=== PATIENT | male | born 1950 | race Caucasian/White ===

== ENCOUNTER → 2020-08-12 | Outpatient (CLI) | payer MEDICARE, OTHER ==
[~2020-08-12] MED LIST: ALLOPURINOL300 MG PO; ASPIRIN81 MG PO; ATENOLOL50 MG PO; AUGMENTIN 875-1 EACH PO; DILTIAZEM 24HR240 M1 PO; ESSENTIAL DAIL1 EACH PO; FISH OIL + D31 EACH PO; FLAGYL500 MG PO; FOLIC ACID 1 MG1 MG PO; HYDROCHLOROTHIA25 MG PO; NORCO 5-325 TA1 EACH PO; SOTALOL80 MG PO; XARELTO20 MG PO; ZOCOR10 MG PO
== END ==
LOC: HEART 5 09:11
DX: I48.91 Unspecified atrial fibrillation (principal); R06.02 Shortness of breath; Z79.899 Other long term (current) drug therapy
CPT/HCPCS: 94010; 94729

== ENCOUNTER → 2020-12-03 | Outpatient (CLI) | payer MEDICARE | LOC: KOH-I 13:10 | DX: M25.511 Pain in right shoulder (principal); S43.101A Unspecified dislocation of right acromioclavicular joint, initial encounter | CPT/HCPCS: 73030 ==

== ENCOUNTER → 2021-01-14 | Outpatient (CLI) | payer MEDICARE | LOC: KOH-I 15:15 | DX: M75.121 Complete rotator cuff tear or rupture of right shoulder, not specified as traumatic (principal); S43.011A Anterior subluxation of right humerus, initial encounter | CPT/HCPCS: 73221 ==

== ENCOUNTER → 2021-03-26 | Outpatient (CLI) | payer MEDICARE ==
[~2021-03-26] MED LIST changes: +AMIODARONE HCL200 MG PO; +HYDROCHLOROTH12.5 MG PO; -HYDROCHLOROTHIA25 MG PO; +LISINOPRIL5 MG PO
[2021-03-26 08:39] LABS: HEMOGLOBIN 12.6 gm/dl (14.0-17.5); RED BLOOD COUNT 4.34 M/UL (4.20-5.50); WHITE BLOOD COUNT 5.3 K/UL (4.5-11.0)
[2021-03-26 08:56] LABS: BUN/CREATININE RATIO 11 (0-10)
== END ==
LOC: OPSV2 07:58 → EDSTATUS 08:00 → OPSV2 08:00
PROVIDERS: Orthopaedic Surgery
DX: Z01.818 Encounter for other preprocedural examination (principal); M75.101 Unspecified rotator cuff tear or rupture of right shoulder, not specified as traumatic
CPT/HCPCS: 80048; 85027; 93005

== ENCOUNTER → 2021-04-01 | Day surgery (SDC) | payer MEDICARE, OTHER ==
[~2021-04-01] VITALS: Ht 177.8 cm; Wt 73.0 kg
[~2021-04-01] MED LIST changes: +CYCLOBENZAPRINE10 MG PO; +OXYCODON-ACETA1 EAC1 PO; +ZOFRAN 4 MG TAB4 MG PO
== END | disposition home or self-care (01) ==
LOC: OR 05:33
DX: M12.811 Other specific arthropathies, not elsewhere classified, right shoulder (principal); G89.18 Other acute postprocedural pain; I10 Essential (primary) hypertension; I48.91 Unspecified atrial fibrillation; Z79.02 Long term (current) use of antithrombotics/antiplatelets; Z79.82 Long term (current) use of aspirin; Z79.899 Other long term (current) drug therapy; Z20.822 Contact with and (suspected) exposure to COVID-19
CPT/HCPCS: 71045; 73020; C1713; C1776; J0592; J0690; J1100; J1200; J1885; J2710; J2795; J3370; J3475; J7120